=== PATIENT | male | born 1995 | race Hispanic/Latino ===

== ENCOUNTER 2020-10-20 20:48 | Emergency (ER) | payer SELFPAY ==
[~2020-10-20] VITALS: Ht 165.1 cm; Wt 80.0 kg
[2020-10-20] MEDS ORDERED: FLEXERIL5 M1 PO (21:37)
[2020-10-20] MEDS ORDERED: MOTRIN800 MG PO (21:37)
[2020-10-20 21:42] VITALS: BP 128/88
== END 2020-10-20 21:51 | disposition home or self-care (01) | DRG 552 ==
LOC: ED 20:48
DX: M54.32 Sciatica, left side (principal)

== ENCOUNTER 2021-05-31 15:41 | Emergency (ER) | payer SELFPAY ==
[~2021-05-31] VITALS: Ht 165.1 cm; Wt 93.0 kg
[~2021-05-31 15:41] MED LIST: FLEXERIL5 M1 PO; MOTRIN800 MG PO
[2021-05-31] MEDS ORDERED: OFLOXACIN0.3 % OU (16:09)
[2021-05-31 16:56] VITALS: BP 126/81
== END 2021-05-31 17:12 | disposition home or self-care (01) | DRG 125 ==
LOC: ED 15:41
DX: H10.9 Unspecified conjunctivitis (principal)

== ENCOUNTER 2023-03-12 16:39 | Emergency (ER) | payer SELFPAY ==
[~2023-03-12] VITALS: Ht 165.1 cm; Wt 87.0 kg
[~2023-03-12 16:39] MED LIST changes: +OFLOXACIN0.3 % OU
[2023-03-12] MEDS ORDERED: AMOX/K CLAV875 M1 PO (18:55)
[2023-03-12 18:57] VITALS: BP 121/81
== END 2023-03-12 19:14 | disposition home or self-care (01) | DRG 156 ==
LOC: ED 16:39
PROC: 3E1B78Z Irrigation of Ear using Irrigating Substance, Via Natural or Artificial Opening (ICD-10-PCS; principal; 2023-03-12)
DX: H61.22 Impacted cerumen, left ear (principal); H66.91 Otitis media, unspecified, right ear